=== PATIENT | female | born 2000 | race Caucasian/White ===

== ENCOUNTER 2024-11-21 18:41 | Emergency (ER) | payer OTHER ==
[~2024-11-21] VITALS: Ht 167.6 cm; Wt 78.0 kg
[2024-11-21] MEDS ORDERED: VENTOLIN HFA18 GM INH (18:54)
[2024-11-21] MEDS ORDERED: ALBUTEROL/IPRATROPIUM 3 ML NEB INH PRN (19:00)
[2024-11-21 19:08] LABS: BASOPHILS 0.4 % (0.1-1.2); EOSINOPHILS 4.2 % (0.7-5.8); LYMPHOCYTES 15.2 % (19.3-51.7); MCH 27.1 PG (25.6-32.2); MCHC 33.0 g/dL (32.2-35.5); MCV 82.2 fL (79.4-94.8); MONOCYTES 7.1 % (4.7-12.5); NEUTROPHILS 72.9 % (34.0-71.1); RBC 4.90 M/uL (3.93-5.22)
[2024-11-21] MEDS ORDERED: DEXAMETHASONE SOD PHOS 10 MG/ML VIAL IV ONE (19:15)
[2024-11-21 19:26] LABS: ALT (SGPT) 12 U/L (14-59); AST (SGOT) 11 U/L (15-37); GLOMERULAR FILTRATION RATE,EST 130 mL/min (>60); PROTEIN, TOTAL 7.4 g/dL (6.4-8.2); UREA NITROGEN 10 mg/dL (7-18)
[2024-11-21] MEDS ORDERED: FAMOTIDINE 20 MG/ 2 ML VIAL IV ONE (19:45)
[2024-11-21 20:13] LABS: CORONAVIRUS COVID-19 AG NEGATIVE (NEGATIVE)
[2024-11-21] MEDS ORDERED: PREDNISONE20 MG PO (20:14)
[2024-11-21] MEDS ORDERED: ALBUTEROL SULFATE 8 GM HOME.PACK INH ONE (20:15)
[2024-11-21 20:33] VITALS: BP 110/96
== END 2024-11-21 20:34 | disposition home or self-care (01) ==
LOC: ED 18:41
PROVIDERS: Emergency Medicine; Internal Medicine
DX: J45.901 Unspecified asthma with (acute) exacerbation (principal); F17.200 Nicotine dependence, unspecified, uncomplicated; Z79.899 Other long term (current) drug therapy
CPT/HCPCS: 36415; 71045; 80053; 83735; 84484; 84703; 85025; 94640; 94664; 96374; 96375; 99285-25; J1100; J2405